=== PATIENT | male | born 1990 | race Caucasian/White ===

== ENCOUNTER 2016-07-04 11:44 | Emergency (ER) | payer MEDICAID ==
[~2016-07-04] VITALS: Ht 188 cm; Wt 158.8 kg
--- NOTE | 2016-07-04 12:03 | NUR ---
[facility] pace in [facility] - 07/04/16 at 1204 by [facility] Patient taken to bed 6.
[2016-07-04 12:07] VITALS: BP 165/91
--- NOTE | 2016-07-04 12:35 | NUR ---
Pt placed in bed 3.
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
--- NOTE | 2016-07-04 12:57 | NUR ---
Dr. Matta evaluating patient at bedside.
[2016-07-04 13:40] VITALS: BP 133/68
--- NOTE | 2016-07-04 13:40 | NUR ---
Patient discharged with v/s stable. Written and verbal after care instructions given and explained. Patient verbalized understanding. Ambulatory with steady gait. All questions addressed prior to discharge. Advised to follow up with PMD.
== END 2016-07-04 13:40 | disposition home or self-care (01) ==
LOC: MED 11:44
DX: S16.1XXA Strain of muscle, fascia and tendon at neck level, initial encounter (principal); Y99.8 Other external cause status; V89.2XXA Person injured in unspecified motor-vehicle accident, traffic, initial encounter; Y93.89 Activity, other specified; Y92.89 Other specified places as the place of occurrence of the external cause